=== PATIENT | male | born 1990 | race Two or more races ===

== ENCOUNTER 2024-03-11 13:22 | Emergency (ER) | payer SELFPAY ==
[2024-03-11 13:27] VITALS: BP 133/87; PULSE 103; RESP 18; TEMP 98.9; BMI 40.0
== END 2024-03-11 14:22 | disposition home or self-care (01) ==
LOC: JERFT 13:22
DX: R05.9 Cough, unspecified (principal); R11.10 Vomiting, unspecified; R06.2 Wheezing
CPT/HCPCS: 71046-TC-FY; 99283-25